=== PATIENT | female | born 1980 | race Caucasian/White ===

== ENCOUNTER 2019-08-03 13:03 | Outpatient (CLI) | payer OTHER ==
[2019-08-03] MEDS ORDERED: LIDOCAINE 1%, 10ML ONE (13:20)
== END 2019-08-03 23:59 | disposition home or self-care (01) ==
LOC: RAD 13:03
PROVIDERS: ATTEND Family Medicine
DX: E04.1 Nontoxic single thyroid nodule (principal)
CPT/HCPCS: 10005; 10006; 88173; J3490

== ENCOUNTER 2019-08-25 08:55 | Emergency (ER) | payer OTHER ==
[~2019-08-25] VITALS: Ht 170.2 cm; Wt 86.4 kg
[2019-08-25 09:05] VITALS: BP 132/77
--- NOTE | 2019-08-25 10:25 | NUR ---
PT GIVEN DC INSTRUCTIONS AND SCRIPT, EDUCATED REGARDING RX FOR AMOXICILLIN AND MAGIC MOUTH WASH. PT DECLINES REPEAT SET OF VS. PT AMBULATORY TO DC DESK WITH STEADY GAIT, NADN AT DC.
== END 2019-08-25 10:26 | disposition home or self-care (01) ==
LOC: ED 09:30
DX: L04.0 Acute lymphadenitis of face, head and neck (principal); K12.0 Recurrent oral aphthae
CPT/HCPCS: 93005; 99283

== ENCOUNTER → 2019-09-29 | Outpatient (CLI) | payer OTHER | END | disposition home or self-care (01) | LOC: CFH 13:40 | PROVIDERS: ATTEND Family Medicine | DX: R92.8 Other abnormal and inconclusive findings on diagnostic imaging of breast (principal); N83.291 Other ovarian cyst, right side; N92.1 Excessive and frequent menstruation with irregular cycle; R10.2 Pelvic and perineal pain | CPT/HCPCS: 76642; 76830; 77066; G0279 ==

== ENCOUNTER 2019-10-01 07:20 | Outpatient (CLI) | payer OTHER ==
[2019-10-01] MEDS ORDERED: LIDOCAINE 1%-EPI 1:100K, 20ML ONE (07:30)
[2019-10-01] MEDS ORDERED: LIDOCAINE 1%, 20ML ONE (07:30)
[2019-10-01] MEDS ORDERED: SODIUM BICARBONATE 4.2%, 5ML ONE (07:30)
== END 2019-10-01 23:59 | disposition home or self-care (01) ==
LOC: CFH 07:20
PROVIDERS: ATTEND Family Medicine
DX: N63.41 Unspecified lump in right breast, subareolar (principal)
CPT/HCPCS: 19000; 76942; J3490

== ENCOUNTER 2019-11-27 17:11 | Emergency (ER) | payer OTHER ==
[~2019-11-27] VITALS: Ht 170.2 cm; Wt 84.4 kg
--- NOTE | 2019-11-27 17:47 | NUR ---
PT WITH C/O CRAMPING X1 WEEK, WORSE TODAY. PT IS 7 WEEKS A2. PT DENIES VAGINAL BLEEDING OR DISCHARGE. PT TOLD TO COME GET CHECKED OUT BY HER PRODUCT SUPPORT ENGINEER THEIR OFFICE IS CLOSED
[2019-11-27 18:14] LABS: MICROSCOPIC NOT IND
[2019-11-27 18:32] LABS: BASOPHILS % (AUTO) 1 % (0-1); EOSINOPHILS # (AUTO) 0.05 x10^3/uL (0-0.4); EOSINOPHILS % (AUTO) 1 % (1-7); LYMPHOCYTES # (AUTO) 2.83 x10^3/uL (1-3.4); LYMPHOCYTES % (AUTO) 38 % (22-44); MD NO; MEAN CORPUSCULAR HEMOGLOBIN 29.4 pg (27.0-34.8); MEAN CORPUSCULAR HGB CONC 33.3 g/dL (32.4-35.8); MEAN PLATELET VOLUME 9.9 fL (7.4-10.4); MONOCYTES % (AUTO) 7 % (2-9); NEUTROPHILS % (AUTO) 53 % (42-75); PLATELET COUNT 205 x10^3/uL (130-400); RED BLOOD COUNT 4.31 x10^6/uL (3.82-5.3); RED CELL DISTRIBUTION WIDTH 13.2 % (9.6-15.2)
--- NOTE | 2019-11-27 19:20 | NUR ---
REPORT RECEIVED FROM JETHRO AGUILAR. PT IN US
[2019-11-27 19:39] VITALS: BP 117/67
--- NOTE | 2019-11-27 19:40 | NUR ---
PT BACK FROM [place]. VSS. RESTING COMFORTABLY IN [facility], NO NEEDS AT THIS TIME. PENDING US RESULTS
--- NOTE | 2019-11-27 20:14 | NUR ---
PT DISCHARGE TO HOME. GIVEN WRITTEN MATERIALS, VERBALIZED UNDERSTANDING. AMBULATED WITH STEADY GAIT TO DISCHARGE DESK. ALL QUESTIONS ANSWERED
== END 2019-11-27 20:29 | disposition home or self-care (01) ==
LOC: ED 19:30
DX: O26.891 Other specified pregnancy related conditions, first trimester (principal); R10.2 Pelvic and perineal pain; Z3A.01 Less than 8 weeks gestation of pregnancy
CPT/HCPCS: 36415; 76801; 81003; 84443; 84702; 85025; 99284

== ENCOUNTER 2019-12-23 09:29 | Emergency (ER) | payer OTHER ==
[~2019-12-23] VITALS: Ht 170.2 cm; Wt 84.6 kg
--- NOTE | 2019-12-23 09:32 | NUR ---
ELEMENTARY ASSISTANT TEACHER NOTE: NO ANSWER WHEN CALLED FROM [facility]
--- NOTE | 2019-12-23 09:45 | NUR ---
INITIAL PT CONTACT. PT PRESENTS TO ED C/O THROAT PAIN AND "SOMETHING STUCK IN MY THROAT, LIKE PRESSURE. IT FEELS LIKE SOMEONE IS TRYING TO CHOKE ME". PT RESPIRATIONS REGULAR AND UNLABORED AND ABLE TO MANAGE OWN SECRETIONS. PT STATES SYMPTOMS HAVE BEEN PRESENT FOR APPROX 2 WEEKS AND WORSENING. PT STATES "WORSE AT NIGHT AND REST MAKES IT BETTER. IT ALSO GETS WORSE THROUGH THE DAY". NAD, VSS. PT PLACED ON CONTINUOUS PULSE OX. CALL LIGHT WITHIN REACH. WILL CONTINUE TO MONITOR.
[2019-12-23 10:54] LABS: BASOPHILS % (AUTO) 0 % (0-1); EOSINOPHILS % (AUTO) 1 % (1-7); LYMPHOCYTES % (AUTO) 30 % (22-44); MEAN CORPUSCULAR HEMOGLOBIN 28.8 pg (27.0-34.8); MEAN CORPUSCULAR HGB CONC 32.4 g/dL (32.4-35.8); MEAN PLATELET VOLUME 9.8 fL (7.4-10.4); MONOCYTES % (AUTO) 7 % (2-9); NEUTROPHILS % (AUTO) 63 % (42-75); PLATELET COUNT 184 x10^3/uL (130-400); RED BLOOD COUNT 4.51 x10^6/uL (3.82-5.3)
[2019-12-23 10:55] LABS: ANION GAP 5 mmol/L (5-15); CALCIUM 9.3 mg/dL (8.5-10.1); CHLORIDE 108 mmol/L (98-107); CREATININE 0.58 mg/dL (0.55-1.02)
[2019-12-23 10:58] LABS: MD NO
[2019-12-23 11:05] LABS: FREE T4 (FREE THYROXINE) 0.94 ng/dL (0.76-1.46)
--- NOTE | 2019-12-23 11:24 | NUR ---
PT UPRIGHT ON NUHA WITH EYES CLOSED, GEN WEAKNESS BUT RESPONDS APPROP TO STAFF, NAD, COMFORT MEASURES PROVIDED, CALL LIGHT WITHIN REACH. Addendum: 12/23/19 at 1129 by MAGALI PT UPRIGHT ON NUHA AWAKE & COMFORTABLE, RESPONDS APPROP TO STAFF, NAD, COMFORT MEASURES PROVIDED, CALL LIGHT WITHIN REACH.
--- NOTE | 2019-12-23 12:24 | NUR ---
BREAK RN NOTE: PT RESTING ON GURDOC, A&O, RESPS EVEN AND UNLABORED. AWAITING US RESULTS AND DISPO. PT UPDATED WITH POC.
--- NOTE | 2019-12-23 13:13 | NUR ---
Patient given discharge instructions and they have confirmed that they understand the instructions. Patient ambulatory with steady gait.
[2019-12-23 13:14] VITALS: BP 123/72
== END 2019-12-23 13:16 | disposition home or self-care (01) ==
LOC: ED 09:56
DX: O26.891 Other specified pregnancy related conditions, first trimester (principal); J02.9 Acute pharyngitis, unspecified; E05.00 Thyrotoxicosis with diffuse goiter without thyrotoxic crisis or storm; R22.9 Localized swelling, mass and lump, unspecified; Z3A.10 10 weeks gestation of pregnancy
CPT/HCPCS: 36415; 76536; 80048; 84439; 84443; 85025; 86308; 87081; 87880; 99284

== ENCOUNTER 2020-06-23 17:54 | Outpatient (CLI) | payer OTHER ==
[~2020-06-23] VITALS: Ht 170.2 cm; Wt 97.7 kg
[2020-06-23] MEDS ORDERED: BETAMETHASONE 6 MG/ML, 5ML IM ONE (18:30)
== END 2020-06-23 19:33 | disposition home or self-care (01) ==
LOC: LDOP 17:54
PROVIDERS: ATTEND Obstetrics & Gynecology
DX: O09.93 Supervision of high risk pregnancy, unspecified, third trimester (principal); Z3A.36 36 weeks gestation of pregnancy
CPT/HCPCS: 59025; 87081

== ENCOUNTER 2020-06-30 15:11 | Outpatient (CLI) | payer OTHER ==
[~2020-06-30] VITALS: Ht 170.2 cm; Wt 97.2 kg
== END 2020-06-30 15:50 | disposition home or self-care (01) ==
LOC: LDOP 15:11
PROVIDERS: ATTEND Obstetrics & Gynecology
DX: O09.93 Supervision of high risk pregnancy, unspecified, third trimester (principal); O26.893 Other specified pregnancy related conditions, third trimester; R10.9 Unspecified abdominal pain; Z3A.37 37 weeks gestation of pregnancy
CPT/HCPCS: 59025

== ENCOUNTER 2020-07-11 06:11 | Inpatient (IN) | payer OTHER ==
[~2020-07-11] VITALS: Ht 170.2 cm; Wt 97.7 kg
[2020-07-11 06:28] VITALS: BP 107/65
[2020-07-11] MEDS ORDERED: TERBUTALINE 1 MG/ML, 1ML SQ PRN (06:30)
[2020-07-11] MEDS ORDERED: FENTANYL PF 100 MCG/2ML IV PRN (06:30)
[2020-07-11] MEDS ORDERED: SODIUM CITRATE/CITRIC ACID 30 ML UDC PO PRN (06:30)
[2020-07-11] MEDS ORDERED: PLEASE ENTER HEIGHT AND WEIGHT MC SCH (06:30)
[2020-07-11] MEDS ORDERED: FENTANYL PF 100 MCG/2ML IVPush PRN (06:30)
[2020-07-11] MEDS ORDERED: ONDANSETRON 2MG/ML, 2ML IVPush PRN ×2 (06:30→08:00)
[2020-07-11] MEDS ORDERED: TERBUTALINE 1 MG/ML, 1ML IVPush PRN (06:30)
[2020-07-11] MEDS ORDERED: OXYTOCIN 30U/ 0.9% NaCL 500ML 500 ML IV PRN (06:30)
[2020-07-11] MEDS ORDERED: D5%-LACTATED RINGERS 1,000 ML IV SCH (06:30)
[2020-07-11] MEDS ORDERED: OXYTOCIN 30U/ 0.9% NaCL 500ML 500 ML IV ONE (06:30)
[2020-07-11 06:34] LABS: BASOPHILS % (AUTO) 1 % (0-1); EOSINOPHILS % (AUTO) 1 % (1-7); LYMPHOCYTES % (AUTO) 26 % (22-44); MEAN CORPUSCULAR HEMOGLOBIN 30.1 pg (27.0-34.8); MEAN CORPUSCULAR HGB CONC 33.4 g/dL (32.4-35.8); MEAN PLATELET VOLUME 10.3 fL (7.4-10.4); MONOCYTES % (AUTO) 7 % (2-9); NEUTROPHILS % (AUTO) 66 % (42-75); PLATELET COUNT 157 x10^3/uL (130-400); RED CELL DISTRIBUTION WIDTH 14.6 % (9.6-15.2)
[2020-07-11] MEDS ORDERED: LEVO50CA2 PO (06:35)
[2020-07-11] MEDS ORDERED: THYR30TA PO (06:35)
[2020-07-11] MEDS ORDERED: PREN1TAB62 PO (06:36)
[2020-07-11 06:38] LABS: MD NO
[2020-07-11] MEDS: LACTATED RINGERS 1,000 ML IV SCH ×3 (06:44→12:10)
[2020-07-11] MEDS ORDERED: NEWBORN KIT ONE (06:49)
[2020-07-11] MEDS ORDERED: MISOPROSTOL 200 MCG TABLET ONE (06:50)
[2020-07-11] MEDS ORDERED: LIDOCAINE 1%, 20ML ONE (06:50)
[2020-07-11] MEDS ORDERED: BUPIVACAINE 0.25% ONE (07:08)
[2020-07-11] MEDS ORDERED: FENTANYL/BUPIV./NS/PF 250 ML EPIDCONT ONE (07:08)
[2020-07-11] MEDS ORDERED: LACTATED RINGERS 1,000 ML IVBOLUS PRN (08:00)
[2020-07-11] MEDS ORDERED: DIPHENHYDRAMINE 50 MG/ML, 1ML IVPush PRN (08:00)
[2020-07-11] MEDS ORDERED: EPHEDRINE 50 MG/ML, 1ML IVPush PRN (08:00)
[2020-07-11] MEDS ORDERED: NALOXONE 0.4 MG/ML, 1ML IVPush PRN (08:00)
[2020-07-11] MEDS ORDERED: FENTANYL/BUPIV./NS/PF 250 ML EPIDCONT SCH (08:00)
[2020-07-11] MEDS ORDERED: LACTATED RINGERS 1,000 ML IV SCH (08:00)
[2020-07-11] MEDS ORDERED: SODIUM CITRATE/CITRIC ACID 15 ML UDC ONE (08:17)
[2020-07-11] MEDS ORDERED: ONDANSETRON 2MG/ML, 2ML IV PRN (13:30)
[2020-07-11] MEDS ORDERED: DOCUSATE 100 MG CAPSULE PO PRN (13:30)
[2020-07-11] MEDS ORDERED: BISACODYL 10 MG SUPP PR PRN (13:30)
[2020-07-11] MEDS ORDERED: MISOPROSTOL 200 MCG TABLET PR PRN (13:30)
[2020-07-11] MEDS ORDERED: OXYTOCIN 30U/ 0.9% NaCL 500ML 500 ML IV SCH (13:30)
[2020-07-11] MEDS ORDERED: SIMETHICONE 80 MG CHEW TAB PO PRN ×2 (13:30)
[2020-07-11] MEDS: OXYTOCIN 30U/ 0.9% NaCL 500ML 500 ML IV SCH ×4 (13:30→23:05)
[2020-07-11] MEDS ORDERED: HYDROcodone/APAP 5/325 TABLET PO PRN (13:30)
[2020-07-11] MEDS ORDERED: CALCIUM CARBONATE 500 MG TAB.CHEW PO PRN (13:30)
[2020-07-11] MEDS ORDERED: ACETAMINOPHEN 325 MG TABLET PO PRN ×2 (13:30)
[2020-07-11 16:15] VITALS: BP 104/64
[2020-07-11] MEDS: IBUPROFEN 600 MG TABLET PO PRN ×2 (17:46→23:46)
[2020-07-11 19:00] VITALS: BP 111/59
[2020-07-11] MEDS: DOCUSATE 100 MG CAPSULE PO PRN (19:08)
[2020-07-11] MEDS ORDERED: DIPH,PERTUSS(ACELL),TET VAC/PF NC IM-VACC ONE (19:30)
[2020-07-11 23:07] LABS: BASOPHILS % (AUTO) 1 % (0-1); EOSINOPHILS % (AUTO) 1 % (1-7); LYMPHOCYTES % (AUTO) 22 % (22-44); MEAN CORPUSCULAR HEMOGLOBIN 29.6 pg (27.0-34.8); MEAN CORPUSCULAR HGB CONC 33.4 g/dL (32.4-35.8); MEAN PLATELET VOLUME 10.6 fL (7.4-10.4); MONOCYTES % (AUTO) 6 % (2-9); NEUTROPHILS % (AUTO) 71 % (42-75); PLATELET COUNT 159 x10^3/uL (130-400); RED BLOOD COUNT 4.12 x10^6/uL (3.82-5.3); RED CELL DISTRIBUTION WIDTH 14.5 % (9.6-15.2)
[2020-07-11 23:09] LABS: MD NO
[2020-07-12] VITALS: BP 116/60
[2020-07-12] MEDS: HYDROcodone/APAP 5/325 TABLET PO PRN ×3 (03:48→14:36)
[2020-07-12 03:51] VITALS: BP 102/62
[2020-07-12] MEDS ORDERED: ARMOUR THYROID 30 MG HOMEMEDPO SCH (06:00)
[2020-07-12] MEDS ORDERED: LEVOTHYROXINE 50 MCG TABLET PO SCH (06:00)
[2020-07-12] MEDS ORDERED: TIROSINT 50 MCG HOMEMEDPO SCH ×2 (06:00→09:00)
[2020-07-12 07:19] VITALS: BP 103/66
[2020-07-12] MEDS: DOCUSATE 100 MG CAPSULE PO PRN (07:28)
[2020-07-12] MEDS: IBUPROFEN 600 MG TABLET PO PRN ×2 (07:29→14:36)
[2020-07-12] MEDS ORDERED: PRENATAL VIT/IRON/FA 1 EACH TABLET PO SCH ×2 (09:00)
[2020-07-12 12:20] VITALS: BP 136/75
[2020-07-12] MEDS: OXYTOCIN 30U/ 0.9% NaCL 500ML 500 ML IV SCH (12:29)
[2020-07-12] MEDS ORDERED: DIPH,PERTUSS(ACELL),TET VAC/PF NC IM-VACC ONE (12:36)
[2020-07-12] MEDS ORDERED: IBUP-1222 PO (13:51)
== END 2020-07-12 15:03 | disposition home or self-care (01) | DRG 807 ==
LOC: LDIP 06:11 → 2NW 15:43
PROVIDERS: ADMIT Obstetrics & Gynecology; ATTEND Obstetrics & Gynecology
PROC: 10907ZC Drainage of Amniotic Fluid, Therapeutic from Products of Conception, Via Natural or Artificial Opening (ICD-10-PCS; principal; 2020-07-12)
PROC: 10E0XZZ Delivery of Products of Conception, External Approach (ICD-10-PCS; 2020-07-12)
PROC: 3E033VJ Introduction of Other Hormone into Peripheral Vein, Percutaneous Approach (ICD-10-PCS; 2020-07-12)
PROC: 3E0R3BZ Introduction of Anesthetic Agent into Spinal Canal, Percutaneous Approach (ICD-10-PCS; 2020-07-12)
PROC: 00HU33Z Insertion of Infusion Device into Spinal Canal, Percutaneous Approach (ICD-10-PCS; 2020-07-12)
DX: O99.284 Endocrine, nutritional and metabolic diseases complicating childbirth (principal); Z37.0 Single live birth; E03.9 Hypothyroidism, unspecified; E04.1 Nontoxic single thyroid nodule; Z20.822 Contact with and (suspected) exposure to COVID-19; Z3A.39 39 weeks gestation of pregnancy; Z80.1 Family history of malignant neoplasm of trachea, bronchus and lung; Z80.3 Family history of malignant neoplasm of breast; Z80.8 Family history of malignant neoplasm of other organs or systems; Z81.8 Family history of other mental and behavioral disorders; Z82.49 Family history of ischemic heart disease and other diseases of the circulatory system; Z79.899 Other long term (current) drug therapy
CPT/HCPCS: 36415; 85025; 86592; 86850; 86900; 87635; 90715; G0378; J2590; J3010; J7120